=== PATIENT | male | born 1965 | race Caucasian/White ===

== ENCOUNTER → 2017-06-06 | Outpatient (CLI) | payer BC, OTHER ==
[~2017-06-06] MED LIST: ASPIR 8181 MG PO; CARVEDILOL12.5 MG PO; LOVENOX SC; NOHOMEMEDICATIONS; NORVASC2.5 MG PO; PERCOCET 10-321 EACH PO; STIOLTO RESPIMAT4 GM INH; VALSARTAN-HCTZ1 EAC2 PO
== END ==
LOC: ULTRA 08:36
DX: I10 Essential (primary) hypertension (principal)

== ENCOUNTER → 2017-06-12 | Outpatient (CLI) | payer BC, OTHER ==
[~2017-06-12] VITALS: Ht 175.3 cm; Wt 74.8 kg
--- NOTE | ~2017-06-12 | EKG ---
[address] [address] ELECTROCARDIOGRAM REPORT Name: ESTHER PHILLIPS [id number]: [facility]/12/17 Attend Phys: Jareth Mercado MD Discharge: Date of : 65 Report #: [id number] THIS REPORT FOR: //name// [facility] Test Date: 2017-06-12 Test Time: 07:17:08 Pat Name: ESTHER PHILLIPS Department: Room: Gender: Psychiatric Specialist: martha : 1965 Requested By: Jareth Mercado Order Number: [id number] : Marek Christensen Measurements Intervals [place] Rate: 62 P: 55 RI: 171 QRS: -2 QRSD: 94 T: 53 QT: 419 QTc: 426 Interpretive Statements Sinus rhythm Left ventricular hypertrophy Compared to ECG 02/02/2011 18:50:15 Left ventricular hypertrophy now present Electronically Signed On 06-12-2017 8:18:15 CDT by Marek Christensen [email or web address] <ELECTRONICALLY SIGNED> By: Marek Christensen MD 06/12/17817 6 6 Marek Christensen MD /CARRIE
--- NOTE | ~2017-06-12 | HC ---
[facility] [place] [address] CONSULTATION Name: ESTHER PHILLIPS Room #: REG [facility].#: [id number] Admission: 06/12/17 Attend Phys: Jareth Mercado MD Discharge: Date of : 65 Report #: [id number] THIS REPORT FOR: //name// CC: Jareth Trejo DATE OF SERVICE: 06/12/2017 REASON FOR CONSULTATION: Elevated creatinine. HISTORY OF PRESENT ILLNESS: This 52-year-old gentleman recently found to have a rather difficult hypertension, on further evaluation was also shown to have a decreased left ventricular ejection fraction and presented for heart catheterization. His creatinine was 3.6. No prior blood tests available. As far as we know, his last blood pressure check was 5 or 6 years ago. At that time, he may have had borderline high blood pressure, knows of no other history of high blood pressure. He is having no headaches. He is having no chest pain. There is no family history of hypertension or kidney disease. He has a good urinary stream. No hematuria or flank pain. PAST MEDICAL HISTORY: He had a broken hip and got a pinning of that about 10 or more years ago and no other surgeries. FAMILY HISTORY: Father from a ruptured abdominal aortic aneurysm at age 78. Mother in her mid 70s with emphysema and lung disease. She was a heavy smoker. SOCIAL HISTORY: Works as a contractor. He was a heavy smoker, quit about 10 months ago. REVIEW OF SYSTEMS: GENERAL: He is feeling reasonably well. EYES: He had some trouble with his vision and was found on recent retinal exam to have some hemorrhages and high blood pressure. ENT: Hearing okay, swallows okay. Denies mouth sores or ulcers. ENDOCRINE: No diabetes or thyroid disease. RESPIRATORY: Occasional wheezing and shortness of breath. Has some inhalers. CARDIAC: He has had a very bad high blood pressure discovered just a few weeks ago. GASTROINTESTINAL: No nausea, vomiting, diarrhea. GENITOURINARY: No hesitancy or hematuria. NEUROLOGIC: No seizure, syncope, stroke or neuropathy. PSYCHIATRIC: No depression or anxiety. HOME MEDICATIONS: Include hydrochlorothiazide and valsartan combination pill, [facility] [address] [place] [address] CONSULTATION Name: ESTHRE PHILLIPS Room #: REG [facility].#: [id number] Admission: 06/12/17 Attend Phys: Jareth Mercado MD Discharge: Date of : 65 Report #: [id number] aspirin 81 mg daily, carvedilol 12.5 mg b.i.d. and his inhalers. PHYSICAL EXAMINATION: CARDIOVASCULAR: This is a reasonably well-appearing gentleman, quite lucid. SKIN: Unremarkable. SKELETAL: Well developed, well nourished, nonobese. HEENT: Extraocular movements are full. Vision intact. Hearing intact. Mucous membranes moist. Tongue, buccal mucosa benign. NECK: Supple. CHEST: Clear to auscultation. HEART: Regular. ABDOMEN: Soft and nontender, without bruits, masses or organomegaly. EXTREMITIES: Show no peripheral edema. No femoral bruits. Peripheral pulses intact. NEUROLOGIC: Intact. LABORATORY DATA: Sodium 134, potassium 5.1, chloride 99, bicarbonate 23, BUN 63, creatinine 3.6, hemoglobin 15. ASSESSMENT AND PLAN: 1. Elevated creatinine. Etiology and length of elevated creatinine, unknown. He has been placed recently on antihypertensives and blood pressure likely dropped quite a bit. He has cardiomyopathy and retinal hemorrhages, seems like a case of advancing hypertension. For completeness, we will do some urine studies and paraprotein studies. He did have a renal sonogram, which as far as I can tell was pretty unremarkable, done here at [facility]. We will change him to amlodipine from the hydrochlorothiazide and valsartan and we will see him back in one week in the office to see what his creatinine is doing, check on his urine and blood studies, see what his blood pressure is and we will go from there. Because of his potassium being elevated even on the thiazide and losartan, I suspect we do not have to worry much about renal artery stenosis here. 2. Former cigarette smoker with apparent chronic bronchitis. <ELECTRONICALLY SIGNED> By: Ari Gonzalez MD 07/03/17 [id number] Ari Gonzalez MD /nt
[2017-06-12 07:13] LABS: HEMATOCRIT 43.7 % (42.0-52.0); MCH 32.1 pg (26.0-34.0); MCHC 34.3 g/dL (28.0-37.0); MCV 93.5 fL (80.0-100.0); RBC 4.68 mil/uL (4.50-6.00); RDW 13.6 % (10.5-14.5); WBC 6.7 thou/uL (4.0-11.0)
[2017-06-12 07:20] LABS: CALCIUM 9.4 mg/dL (8.5-10.1); CREATININE 3.6 mg/dL (0.7-1.3); POTASSIUM 5.1 mmol/L (3.5-5.1)
[2017-06-12 07:38] VITALS: BP 114/76
[2017-06-12 12:16] LABS: URINE BILIRUBIN NEGATIVE (Negative); URINE BLOOD NEGATIVE (Negative); URINE CLARITY CLEAR; URINE COLOR YELLOW; URINE GLUCOSE-RANDOM* NEGATIVE (Negative); URINE KETONES NEGATIVE (Negative); URINE LEUKOCYTES NEGATIVE (Negative); URINE NITRITE NEGATIVE (Negative); URINE PROTEIN (DIPSTICK) NEGATIVE (Negative); URINE SPECIFIC GRAVITY 1.015 (1.005-1.035); URINE UROBILINOGEN 0.2 E.U./dl (0.2-1.0)
[2017-06-12 12:18] LABS: PROT/CREAT RATIO 0.3; URINE CREATININE-RANDOM* 60.2 mg/dL
[2017-06-13 16:07] LABS: KAPPA FREE LIGHT CHAINS 113.4 mg/L (3.3-19.4); KAPPA/LAMBDA RATIO 1.06 (0.26-1.65); LAMBDA FREE LIGHT CHAINS 106.8 mg/L (5.7-26.3)
[2017-06-14 11:14] LABS: GLOBULIN TOTAL 3.6 g/dL (2.2-3.9); M-SPIKE Not Observed g/dL (Not Observed)
== END | disposition home or self-care (01) ==
LOC: CATH 06:34
PROVIDERS: Internal Medicine Cardiovascular Disease; Internal Medicine Nephrology
DX: R79.89 Other specified abnormal findings of blood chemistry (principal); Z53.8 Procedure and treatment not carried out for other reasons; I10 Essential (primary) hypertension; I42.9 Cardiomyopathy, unspecified; K21.9 Gastro-esophageal reflux disease without esophagitis; Z87.891 Personal history of nicotine dependence; Z82.49 Family history of ischemic heart disease and other diseases of the circulatory system; Z98.890 Other specified postprocedural states